=== PATIENT | male | born 1945 | race Caucasian/White ===

== ENCOUNTER 2016-11-19 08:36 | Emergency (ER) | payer OTHER ==
[~2016-11-19] VITALS: Ht 182.9 cm; Wt 118.0 kg
[~2016-11-19 08:36] MED LIST: AMARYL2 MG PO; COUMADIN5 MG PO; DOXYCYCLINE HYC50 M1 PO; ENDOCET 5-3251 EACH PO; GABAPENTIN400 MG PO; HYTRIN10 MG PO; INVOKANA300 MG PO; LIPITOR80 MG PO; NEURONTIN100 MG PO; NORCO 5/3251 TABLET PO; NORVASC10 MG PO; OXYCONTIN30 MG PO; PAMELOR25 MG PO; PROSCAR5 MG PO; TOPROL XL50 MG PO; TRAMADOL HCL50 MG PO; XARELTO15 MG PO
[2016-11-19 10:17] LABS: EOSINOPHIL (%) 0.9 % (0-5); EOSINOPHIL COUNT 0.1 K/uL (0-0.3); HEMATOCRIT 45.7 % (38.0-50.0); IMMATURE GRANULOCYTE COUNT 1.5 K/uL; MCH 29.2 PG (29.0-34.0); MCHC 34.1 G/DL (30.0-36.0); MCV 85.6 FL (86-99); MEAN PLAT.VOLUME 10.1 uM^3 (9.0-12.4); MONOCYTE (%) 9.4 % (3-12); MONOCYTE COUNT 1.4 K/uL (0-0.8); NEUTROPHIL COUNT 11.1 K/uL (1.8-6.4); PLATELET COUNT 268 K/uL (156-360); RBC DIS.WIDTH-CV 14.3 % (11.8-14.6); RBC DIS.WIDTH-SD 44.2 % (39-53); RED BLOOD COUNT 5.34 M/uL (4.00-5.50); WHITE BLOOD COUNT 14.8 K/uL (4.1-10.2)
[2016-11-19 10:21] LABS: CHLORIDE 105 mEq/L (99-109); POTASSIUM 4.4 mEq/L (3.7-5.4); SODIUM 137 mEq/L (136-147)
[2016-11-19 10:23] LABS: GLUCOSE 130 mg/dL (70-99)
[2016-11-19 10:24] LABS: ANION GAP 11 MEQ/L (2-14)
[2016-11-19 10:25] LABS: TOTAL BILIRUBIN 0.9 mg/dL (0.0-1.0)
[2016-11-19 10:27] LABS: ALKALINE PHOSPHATASE 85 IU/L (3-129); GFR ESTIMATE (CALCULATED) 49 mL/min/
[2016-11-19 10:28] LABS: UREA NITROGEN (BUN) 24 mg/dL (9-23)
[2016-11-19 10:30] LABS: LIPASE 22 U/L (1.0-51.0)
[2016-11-19] MEDS ORDERED: PROTONIX40 MG PO (11:57)
[2016-11-19 11:59] VITALS: BP 106/69
== END 2016-11-19 12:19 | disposition home or self-care (01) ==
LOC: EME 08:36
PROVIDERS: Emergency Medicine
DX: K27.9 Peptic ulcer, site unspecified, unspecified as acute or chronic, without hemorrhage or perforation (principal); J43.9 Emphysema, unspecified; J44.9 Chronic obstructive pulmonary disease, unspecified; F17.200 Nicotine dependence, unspecified, uncomplicated; Z85.038 Personal history of other malignant neoplasm of large intestine
CPT/HCPCS: 71010; 74176; 80053; 83690; 85025; 99281; 99285; C9113; J1170; J2270; J2405; J7030

== ENCOUNTER → 2017-08-05 | Outpatient (CLI) | payer OTHER ==
[~2017-08-05] VITALS: Ht 182.9 cm; Wt 117.9 kg
[~2017-08-05] MED LIST changes: +PROTONIX40 MG PO; +SPIRIVA RESPIMAT4 GM IH; -XARELTO15 MG PO; +XARELTO20 MG PO
[2017-08-05 14:49] LABS: HEMATOCRIT 43.4 % (38.0-50.0); MCH 26.9 PG (29.0-34.0); MCHC 32.3 G/DL (30.0-36.0); MCV 83.3 FL (86-99); MEAN PLAT.VOLUME 9.1 uM^3 (9.0-12.4); PLATELET COUNT 263 K/uL (156-360); RBC DIS.WIDTH-CV 13.8 % (11.8-14.6); RBC DIS.WIDTH-SD 41.7 % (39-53); RED BLOOD COUNT 5.21 M/uL (4.00-5.50); WHITE BLOOD COUNT 19.2 K/uL (4.1-10.2)
[2017-08-05 14:52] LABS: POINT-OF-CARE METER ID UU14107333
[2017-08-05 15:01] LABS: INTER. NORMALIZED RATIO 1.2; PROTHROMBIN TIME 12.7 SEC (10.2-12.9)
[2017-08-05 15:04] LABS: PTT 28.3 SEC (25-37)
== END | disposition home or self-care (01) ==
LOC: AMB 13:35
PROVIDERS: Internal Medicine Pulmonary Disease
PROC: 0BJ0XZZ Inspection of Tracheobronchial Tree, External Approach (ICD-10-PCS; principal; 2017-08-05)
DX: R91.8 Other nonspecific abnormal finding of lung field (principal); R04.2 Hemoptysis; Z53.09 Procedure and treatment not carried out because of other contraindication; R45.1 Restlessness and agitation
CPT/HCPCS: 82948; 85027; 85610; 85730; J0171; J0461; J2175; J2250; J2310; J2550; J3010

== ENCOUNTER → 2017-08-13 | Outpatient (CLI) | payer OTHER ==
[~2017-08-13] VITALS: Ht 182.9 cm; Wt 117.9 kg
[2017-08-13 16:43] LABS: POINT-OF-CARE METER ID UU14107333
[2017-08-13 19:12] LABS: POINT-OF-CARE METER ID UU13113819
== END | disposition home or self-care (01) ==
LOC: AMB 14:18
PROVIDERS: Internal Medicine Pulmonary Disease
PROC: 0B9G8ZX Drainage of Left Upper Lung Lobe, Via Natural or Artificial Opening Endoscopic, Diagnostic (ICD-10-PCS; principal; 2017-08-13)
DX: R04.2 Hemoptysis (principal); R91.1 Solitary pulmonary nodule; D18.03 Hemangioma of intra-abdominal structures; J44.9 Chronic obstructive pulmonary disease, unspecified; E11.9 Type 2 diabetes mellitus without complications; I10 Essential (primary) hypertension; K21.9 Gastro-esophageal reflux disease without esophagitis; I48.91 Unspecified atrial fibrillation; E78.5 Hyperlipidemia, unspecified; F17.210 Nicotine dependence, cigarettes, uncomplicated; Z86.718 Personal history of other venous thrombosis and embolism; Z79.01 Long term (current) use of anticoagulants; Z79.84 Long term (current) use of oral hypoglycemic drugs
CPT/HCPCS: 82948; 87070; 87116; 87205; 87206; 88108; 93005